=== PATIENT | male | born 1990 | race Caucasian/White ===

== ENCOUNTER 2017-11-19 05:45 | Day surgery (SDC) | payer OTHER ==
[2017-11-17 17:13] VITALS: BMI 27.1
[2017-11-19] VITALS (13 sets, daily range): BP systolic 108–140; BP diastolic 48–84; PULSE 92–106; RESP 10–18; Ht 185.4 cm; Wt 91.0 kg
[~2017-11-19] VITALS: Ht 185.4 cm; Wt 91.0 kg
[2017-11-19] MEDS ORDERED: PROPOFOL 1000 MG INJ ONE (07:00)
[2017-11-19] MEDS ORDERED: POLYMYXIN/BACITRACIN 1L IRRIG ONE (07:01)
[2017-11-19] MEDS ORDERED: ROPIVACAINE 0.5 % 30 ML VIAL ONE ×2 (07:01→09:18)
[2017-11-19] MEDS ORDERED: METOCLOPRAMIDE 10 MG INJ ONE (07:29)
[2017-11-19] MEDS ORDERED: ROCURONIUM 50 MG INJ ONE (07:29)
[2017-11-19] MEDS ORDERED: MIDAZOLAM 1 MG/ML 2 ML INJ ONE (07:29)
--- NOTE | 2017-11-19 07:32 | HPN ---
Date/Time of Note Date/Time of Note DATE: 11/19/17 TIME: 07:32 Interval H&P Admission Note Pt. seen H&P reviewed: No system changes SANJAY BRAY MD Nov 19, 2017 07:32
[2017-11-19] MEDS ORDERED: CEFAZOLIN 1 GM INJ ONE (07:44)
[2017-11-19] MEDS ORDERED: morphine 2 MG INJ IV PRN (08:00)
[2017-11-19] MEDS ORDERED: HYDROmorphONE 2 MG/ML SYG ONE (08:02)
[2017-11-19] MEDS ORDERED: MEPERIDINE 100 MG INJ ONE (08:02)
[2017-11-19] MEDS ORDERED: LABETALOL HCL 20MG INJ ONE (08:10)
[2017-11-19] MEDS ORDERED: ONDANSETRON 4 MG INJ IV PRN (08:30)
[2017-11-19] MEDS ORDERED: HYDROmorphONE (0.2 MG/ML) 10ML SYG IV PRN ×3 (08:30)
[2017-11-19] MEDS ORDERED: METOCLOPRAMIDE 10 MG INJ IV PRN (08:30)
[2017-11-19] MEDS ORDERED: MEPERIDINE 25 MG INJ IV PRN (08:30)
[2017-11-19] MEDS ORDERED: hydrALAzine 20 MG INJ IV PRN (08:30)
[2017-11-19] MEDS ORDERED: DIPHENHYDRAMINE 50 MG INJ IV PRN (08:30)
[2017-11-19] MEDS ORDERED: LABETALOL HCL 20MG INJ IV PRN (08:30)
[2017-11-19] MEDS ORDERED: OXYCODONE/ACETAMINOPHEN (5/325) TAB PO PRN ×2 (08:30)
[2017-11-19] MEDS ORDERED: NEOMYC/POLYMYX/BACIT 30 GM OINT ONE (09:53)
[2017-11-19] MEDS ORDERED: KETOROLAC 30 MG INJ ONE (09:57)
[2017-11-19] MEDS ORDERED: ONDANSETRON 4 MG INJ ONE (09:57)
--- NOTE | 2017-11-19 10:21 | OPR ---
Date/Time of Note Date/Time of Note DATE: 11/19/17 TIME: 10:21 Operative Report Procedure Date: Nov 19, 2017 Preoperative Diagnosis Right knee ACL rupture Postoperative Diagnosis Right knee ACL rupture Right knee patellafemoral grade 1 chondromalacia Operation/Procedure Performed Right knee ACL reconstruction with hamstring autograft Right knee chondroplasty Surgeon Sanjay Bray MD Hydraulic Governor Assembler NICKO Hartley Anesthesia Type: general, other (fascia iliacus) Anesthesiologist: JAQUI MONTEIRO MD Tourniquet Time: 90 min at 250 mm Hg Estimated Blood Loss: minimal Transfusion none Specimen none Grafts/Implants Mitek Adjustable rigidloop button Mitek 6-8 mm x 30 BioIntrafix Tubes/Drains none Complications none Pt Condition Post Procedure: stable Disposition: PACU Indications INDICATIONS: The patient is a 21-year-old male with a prolonged history of right knee giving way. He has had continued episodes of instability despite PT over the past several months. The patient has restored their range of motion and is now brought to the operating room for ACL reconstruction, possible partial medial and lateral meniscectomy versus medial and lateral meniscal repair, chondroplasty and debridement. The risks, benefits, and alternatives of surgery were discussed with the patient. The risks included but were not limited to infection, bleeding, damage to vessels and nerves, loss of motion, continued pain, re-tear of the meniscus, deep venous thrombosis, and complications due to anesthesia including nerve injury, myocardial infarction, stroke, , etc. The patient stated understanding of the nature of the surgical procedure and gave written and verbal consent to proceed. Procedure Description The patient was brought to the operating room and placed supine on the operating room table. General anesthesia was induced and an adductor block was placed. The Right lower extremity was examined under anesthesia. Range of motion was 0 degrees of extension to 135 degrees of flexion. There was no varus or valgus or posterolateral instability. He had no instability to varus or valgus stress at 0 or 30 degrees. He had a 2+ Monse and drawer with a positive pivot shift The right lower extremity was then prepped and draped in the usual fashion. A tourniquet was placed proximally on the thigh over a bias stockinette. A standard anterolateral parapatellar stab wound was created. The knee joint was entered with a blunt-tipped obturator, followed by the 30-degree video arthroscope. An anteromedial portal was established under arthroscopic control. A routine arthroscopic survey was performed. The suprapatellar pouch was unremarkable. The undersurface of the patella was well-preserved. The patella appeared to track centrally within the trochlear groove. Trochlea no chondromalacia. The medial and lateral gutters were inspected and there was no loose body seen. There was no hypertrophied plica. The popliteal hiatus was entered and was unremarkable. The lateral compartment was entered. The lateral femoral condyle exhibited no chondromalacia and the lateral tibial plateau showed no chondromalacia. There was no chondromalacia adjacent to the notch. There was no chondromalacia along the central aspect of the weight bearing lateral tibial plateau. The lateral meniscus was probed and found to be stable and firm on probing The intercondylar notch was visualized. The anterior cruciate ligament was torn from its femoral origin. Posteromedially there was no loose body seen. The posterior cruciate ligament was visualized and appeared intact. The medial compartment was entered. The articular surfaces of the medial femoral condyle and medial tibial plateau were well maintained. There was minimal chondromalacia noted on the medial femoral condyle, and chondromalacia noted on the medial tibial plateau. The medial meniscus was intact to probing Attention was turned to reconstruction of the anterior cruciate ligament. Following exsanguination with an Esmarch bandage the tourniquet was inflated to 250 mm of mercury. Using a motorized shaver a limited notchplasty was performed, exposing the lateral wall and roof of the notch, identifying the [id number] position. The stump of the anterior cruciate ligament was debrided. A Vector guide was placed intra-articularly between the tibial spines in line with the anterior horn of the lateral meniscus. A Jennie wire was then inserted into the knee through a 2 cm incision made over the proximal medial tibia for the hamstring harvest. The incision was deepened through the subcutaneous tissue with subperiosteal dissection achieved. Bleeding points were coagulated with the Bovie electrocautery. The Semitendinosis and gracilis were harvested and taken to the back table, accommodating a 8.5 mm graft on the femoral side and 8.5 mm graft on the tibial side Tibial drilling was then carried out first with a 6 mm followed by a 8.5 mm cylindrical reamer with the guide set at 55 degrees. Via an accessory medial portal, the Beath pin was drilled out the femoral cortex and skin with the knee in hyperflexion. The femoral tunnel was then created, with a spade tip guidewire, Depth-gauging confirmed a tunnel length of 40 mm. Then reaming proceeded, first with a 6 mm then an 8 mm drill to a depth of 25 mm. A adjustable rigid loop Mitek button was selected. The graft was inserted intra -articularly and the Mitek button was deployed. The graft was cycled for 20 cycles with 25 pounds of force to pre-load the graft. Tibial fixation was carried out using a 6-8 Bio-IntraFix in 10 degrees of flexion with a posterior drawer. At the completion of surgery the patient had a firm stable Monse. There was a negative pivot shift. The patient had a 0 firm Monse and a negative pivot shift. There was no evidence for any roof or lateral wall impingement. The tourniquet was deflated at 90 minutes. The knee was irrigated with two liters of lactated Ringer's solution. Excess fluid was drained. The tibial wounds were then copiously irrigated with bacitracin solution and closed in layers with #0, #2-0 and #3-0 Vicryl. The skin was reapproximated with 3-0 then #4-0 Monocryl. The knee was injected with 20 cc of 0.5% plain ropivacaine. A dry sterile dressing was applied, followed by a bulky bandage and braden wrap, insuring no contact with the skin. A postoperative TROM brace was applied locked in full extension. The patient was awakened in the Operating Room and transported to the Recovery Room in satisfactory condition. The patient appeared to tolerate the procedure well. At the completion of surgery the patient had soft compartments, palpable pulses, and brisk capillary refill. There were no complications noted. SANJAY BRAY MD Nov 19, 2017 10:21
== END 2017-11-19 12:01 | disposition home or self-care (01) ==
LOC: SDS 05:45
PROVIDERS: ATTEND Orthopaedic Surgery
DX: S83.511A Sprain of anterior cruciate ligament of right knee, initial encounter (principal); M22.41 Chondromalacia patellae, right knee; X58.XXXA Exposure to other specified factors, initial encounter; Y93.89 Activity, other specified; Y92.89 Other specified places as the place of occurrence of the external cause; Y99.8 Other external cause status
CPT/HCPCS: 29888; 82306; J0690; J1170; J1885; J2175; J2250; J2405; J2765; J2795; Z7512; Z7610